=== PATIENT | female | born 1985 ===

== ENCOUNTER 2017-04-22 18:09 | Emergency (ER) | payer SELFPAY ==
[2017-04-22 18:09] VITALS: BMI 23.0
[2017-04-22 18:18] VITALS: BP 108/54; PULSE 77; RESP 18; TEMP 99.2; O2SAT 100
--- NOTE | 2017-04-22 18:35 | ED PDOC ---
HPI: Female Pain Time Seen by Provider: 04/22/17 18:24 Chief Complaint (Nursing): Female Genitourinary History Per: Patient Onset/Duration Of Symptoms: Days (1) Current Symptoms Are (Timing): Still Present Severity: Mild Pain Scale Rating Of: 2 Quality Of Discomfort: Cramping Additional Complaint(s): Vaginal bleeding assoc with lower abd cramping since this AM. Approx 8 weeks preg. [id number] Abnormal Vaginal Bleeding: Yes Past Medical History Vital Signs: Last Vital Signs Temp 99.2 F 04/22/17 18:15 Pulse 77 04/22/17 18:15 Resp 18 04/22/17 18:15 BP 108/54 L 04/22/17 18:15 Pulse Ox 100 04/22/17 18:15 - Medical History PMH: No Chronic Diseases - Family History Family History: States: Unknown Family Hx - Home Medications Home Medications: Ambulatory Orders Medication Instructions Recorded Cyclobenzaprine HCl [Flexeril] 10 mg PO HS #10 tab 03/27/15 Ibuprofen [Motrin] 600 mg PO Q6 PRN #20 tab 03/27/15 Oxycodone HCl/Acetaminophen 1 tab PO Q4 #10 tab 03/27/15 [Percocet 325 mg-5 mg] Ibuprofen [Motrin Tab] 600 mg PO Q8 PRN #60 tab 08/20/16 - Allergies Allergies/Adverse Reactions: Allergies Allergy/AdvReac Type Severity Reaction Status Date / Time No Known Allergies Allergy Verified 04/22/17 18:15 Review of Systems Gastrointestinal: Positive for: Abdominal Pain Genitourinary Female: Positive for: Vaginal Bleeding. Negative for: Dysuria, Frequency Musculoskeletal: Negative for: Back Pain Physical Exam - Physical Exam Appears: Positive for: Non-toxic, No Acute Distress Skin: Positive for: Normal Color, Warm, DRY Gastrointestinal/Abdominal: Positive for: Normal Exam, Bowel Sounds, Soft Pelvic Exam: Positive for: External Exam Normal, Blood. Negative for: Mass, Tender Adnexa - Laboratory Results Result Diagrams: 04/22/17 18:50 04/22/17 18:50 - ECG O2 Sat by Pulse Oximetry: 100 Disposition - Clinical Impression Clinical Impression: Threatened miscarriage - Patient ED Disposition Is Patient to be Admitted: No Counseled Patient/Family Regarding: Studies Performed, Diagnosis, Need For Followup, Rx Given - Disposition [facility]errals[facility] Disposition: Routine/Home Disposition Time: 21:40 Condition: FAIR Instructions: Threatened Miscarriage (ED) Print Language: NIGERIAN
[2017-04-22 19:06] LABS: BASO # 0.1 K/uL (0.0-0.2); BASO % 0.9 % (0.0-2.0); EOS # 0.3 K/uL (0.0-0.7); EOS % 2.9 % (0.0-4.0); HEMATOCRIT 34.7 % (34.0-47.0); LYMPH # 2.3 K/uL (1.0-4.3); LYMPH % 25.8 % (20.0-40.0); MEAN CELL VOLUME 83.4 fl (81.0-99.0); MEAN CORPUSCULAR HGB CONC 33.6 g/dL (33.0-37.0); MEAN PLATELET VOLUME 7.4 fl (7.2-11.7); MONO # 0.6 K/uL (0.0-0.8); MONO % 6.3 % (0.0-10.0); NEUT # 5.8 K/uL (1.8-7.0); NEUT % 64.1 % (50.0-75.0); NRBC % 0.1 % (0.0-0.0); RED CELL DISTRIBUTION WIDTH 14.8 % (11.5-14.5); WHITE BLOOD COUNT 9.1 K/uL (4.8-10.8)
[2017-04-22 19:17] LABS: ALB/GLOB RATIO 1.4 (1.0-2.1); ALKALINE PHOSPHATASE 66 U/L (38-126); ALT/SGPT 29 U/L (9-52); AST/SGOT 28 U/L (14-36); BILIRUBIN,TOTAL 0.2 mg/dl (0.2-1.3); BLOOD UREA NITROGEN 7 mg/dl (7-17); CALCIUM 9.2 mg/dL (8.4-10.2); CARBON DIOXIDE 22 mmol/L (22-30); CHLORIDE 101 mmol/L (98-107); GFR AFRICAN-AMERICAN > 60; GLUCOSE,RANDOM 86 mg/dL (65-105); POTASSIUM 3.7 MMOL/L (3.6-5.0); SODIUM 135 mmol/l (132-148); TOTAL PROTEIN 7.4 G/DL (6.3-8.2)
--- NOTE | 2017-04-22 22:10 | US ---
EXAM: US , Transvaginal CLINICAL HISTORY: 31 years old, female; Signs and symptoms; Lmp or gestational age (in weeks): 02/16/17; Antepartum complications; Hemorrhage; ; Additional info: R/O ectopic TECHNIQUE: Real-time transvaginal obstetrical ultrasound of the maternal pelvis and a first trimester with image documentation. Transvaginal imaging was used for better evaluation of the fetus and adnexa. COMPARISON: No relevant prior studies available. FINDINGS: Gestation: Single live intrauterine gestation. heart rate of 164 beats per minute. [place]-rump length of 2.48 cm, correlating with gestational age of 9 weeks 1 day. Uterus/cervix: No subchorionic hemorrhage. No cervical dilatation or effacement. Ovaries: RIGHT ovary: Normal. LEFT ovary: 3.7 x 1.8 x 2.5 cm anechoic lesion. No adnexal masses. Free fluid: No significant free fluid. IMPRESSION: 1. Single live intrauterine gestation. 2. LEFT ovarian cyst. 3. Incidental/non-acute findings are described above.
== END 2017-04-22 22:25 | disposition home or self-care (01) ==
LOC: H.ER 18:09
DX: O20.0 Threatened abortion (principal); Z3A.08 8 weeks gestation of pregnancy

== ENCOUNTER 2017-11-15 16:25 | Inpatient (IN) | payer MEDICAID, SELFPAY ==
[2017-11-15 16:31] VITALS: BMI 27.8
[2017-11-15 16:47] LABS: BASO # 0.2 K/uL (0.0-0.2); BASO % 1.8 % (0.0-2.0); EOS # 0.1 K/uL (0.0-0.7); EOS % 0.7 % (0.0-4.0); HEMOGLOBIN 13.5 g/dL (12.0-16.0); LYMPH # 2.5 K/uL (1.0-4.3); LYMPH % 22.8 % (20.0-40.0); MEAN CELL VOLUME 88.5 fl (81.0-99.0); MEAN CORPUSCULAR HEMOGLOBIN 29.7 pg (27.0-31.0); MEAN CORPUSCULAR HGB CONC 33.6 g/dL (33.0-37.0); MEAN PLATELET VOLUME 7.6 fl (7.2-11.7); MONO # 0.8 K/uL (0.0-0.8); MONO % 7.3 % (0.0-10.0); NEUT # 7.4 K/uL (1.8-7.0); NEUT % 67.4 % (50.0-75.0); RBC 4.55 Mil/uL (3.80-5.20); RED CELL DISTRIBUTION WIDTH 15.8 % (11.5-14.5)
[2017-11-15] MEDS ORDERED: Oxytocin 30 UNITS in Sodium Chloride 0.9% 500 ML IV ONE (17:00)
[2017-11-15] MEDS: Lactated Ringer's 1,000 ML IV SCH ×2 (17:10→17:12)
[2017-11-15] MEDS ORDERED: Lidocaine 1% Inj (20ml) ONE (17:39)
--- NOTE | 2017-11-15 17:59 | OBADHP ---
Datetime: 11/15/2017 16:45 Admit Comment, IP Provider: 32 yo ega of 38.6 presents to the ed with contractions. +: fm -: vb, lof, cp/sob/n/v pnc [facility]uma obhx: x1 2013 female; sab x1 2015 gyne: hsv 1 positive 09/06/2017 (hsv 2 neg); pap neg medhx: none famhx: none surg: none soc: denies smoking, etoh, illicit drugs pnv NKDA AAOX3 cardiac: s1s2 no murmur lungs: clear bilaterally no murmur abdo: gravid, non tender bedside us: cephalic negative for calf tenderness 32 yo iup 38.6 -active labor -admit to l_d -labs: cbc, ts, hiv, rpr, lr GBS: neg; ABO-Rh: O+; Ab:- ; HIV: -; RPR:- ; GC/C: - ; Rubella: im; HbsAg: -; PPD: 04/14/2017 neg; TDap:09/06/[address] Tyrell davis md [email or web address] Patient was seen with the resident and I agree with the note Pelvic Type - PN: Adequate Extremities - PN: Normal Abdomen - PN: Normal Back - PN: Normal Breast - PN: Not Done Lungs - PN: Normal Heart - PN: Normal Thyroid - PN: Not Done Neurologic - PN: Normal HEENT - PN: Normal General - PN: Normal FHR - Baseline A Provider: 150 Vital Signs Provider: Reviewed; Within Normal Limits IP Chief Complaint: Uterine contractions; Maternal discomfort NICHD Variability Prov Fetus A: Moderate 6-25bpm NICHD Accel Fetus A IP Provider: [id number] FHR Category Provider Fetus A: Category I NICHD Decel Fetus A IP Provider: None Dilatation, Provider: 8 Effacement, Provider: 70 Station, Provider: -2 Genitourinary Exam: Normal DTRs - PN: Not Done EGA AdmitDate IP: 38.6 IP Adm Impression: Term, intrauterine ; Active labor IP Admit Plan: Admit to unit Datetime: 11/15/2017 16:30 Pool Provider: Negative
[2017-11-15] MEDS ORDERED: Oxycodone/Acetaminophen 5/325 mg Tab PO PRN ×2 (18:04)
--- NOTE | 2017-11-15 18:07 | OBDS ---
DELIVERY PERSONNEL Delivery Doctor: Garret Santillan MD MATERNAL INFORMATION Delivery Anesthesia: Local Medications in Delivery: Pitocin 30u/500LR Estimated Blood Loss (ml): 200 Placenta Cultured: No Provider Comments: Delivered a live baby boy at 5:45 PM, the baby was bulb suctioned on the perineum and transferred to the maternal chest. The cord was clamped and cut 3 vessels noted cord blood was o btained and sent to the lab. The placenta was delivered at 5:50 PM intact. The estimated blood loss w as approximately 100 mL. There was a first-degree laceration was repaired with 2-0 repeat. The mother tolerated the procedure well and the baby went to [facility] weighing 3135 g LABOR SUMMARY EDC: 11/23/2017 00:00 No. Babies in Womb: 1 Attempted: No Labor Anesthesia: None LABOR INFORMATION Onset of Labor: 11/15/2017 12:00 Complete Dilatation: 11/15/2017 17:35 Oxytocin: N/A Group B Beta Strep: Negative MEMBRANES Membranes Rupture Method: Artificial Rupture of Membranes: 11/15/2017 17:30 Length of Rupture (hrs): 0.25 Amniotic Fluid Color: Clear Amniotic Fluid Amount: Moderate Amniotic Fluid Odor: Normal STAGES OF LABOR Stage 1 hrs: 5 Stage 1 min: 35 Stage 2 hrs: 0 Stage 2 min: 10 Stage 3 hrs: 0 Stage 3 min: 5 Total Time in Labor hrs: 5 Total Time in Labor min: 50 VAGINAL DELIVERY Episiotomy: None Laceration Extension: First Degree Laceration Type: Perineal Laceration Repair: Yes Initial Vag Sponge Count: 5 Final Vag Sponge Count: 5 Initial Vag Sharps Count: 3 Final Vag Sharps Count: 3 Sponge Count Correct: Yes Sharps Count Correct: Yes BABY A INFORMATION Infant Delivery Date/Time: 11/15/2017 17:45 Method of Delivery: Vaginal Born in Route : No : N/A Forceps: N/A Vacuum Extraction: N/A Shoulder Dystocia : No SHOULDER DYSTOCIA BABY A Delivery Date/Time: 11/15/2017 17:45 PRESENTATION/POSITION BABY A Presentation: Cephalic PLACENTA INFORMATION BABY A Placenta Delivery Time : 11/15/2017 17:50 Placenta Method of Delivery: Manual Removal Placenta Status: Delivered SCORES BABY A Heart Rate 1 min: >100 bpm Resp Effort 1 min: Good Cry Reflex Irritability 1 min: Cough or Sneeze or Pulls Away Muscle Tone 1 min: Active Motion Color 1 min: Body [place], Extremities Blue SCORE 1 MIN: 9 Heart Rate 5 min: >100 bpm Resp Effort 5 min: Good Cry Reflex Irritability 5 min: Cough or Sneeze or Pulls Away Muscle Tone 5 min: Active Motion Color 5 min: Body [place], Extremities Blue SCORE 5 MIN: 9 INFORMATION BABY A Gestational Age at Delivery: 38.6 Gestational Status: Term Infant Outcome : Liveborn Infant Condition : Stable Infant Sex: Male IDENTIFICATION/MEDS BABY A ID Band Number: [id number] ID Band Location: Left Leg; Left Arm WEIGHT/LENGTH BABY A Birthweight (gms): 3135 Infant Weight (lb): 6 Weight (oz): 15 CORD INFORMATION BABY A No. 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
[2017-11-15] MEDS ORDERED: Oxytocin 30 UNITS in Sodium Chloride 0.9% 500 ML IV SCH (18:15)
[2017-11-16 06:52] LABS: HEMOGLOBIN 11.7 g/dL (12.0-16.0); MEAN CELL VOLUME 87.6 fl (81.0-99.0); MEAN CORPUSCULAR HEMOGLOBIN 29.5 pg (27.0-31.0); MEAN CORPUSCULAR HGB CONC 33.7 g/dL (33.0-37.0); RBC 3.95 Mil/uL (3.80-5.20); RED CELL DISTRIBUTION WIDTH 15.6 % (11.5-14.5); WHITE BLOOD COUNT 10.3 K/uL (4.8-10.8)
--- NOTE | 2017-11-17 11:41 | OBDCSUM ---
Datetime: 11/17/2017 06:15 Discharged to, Provider: Home Follow up at, Provider: [facility] Disch Instr Activity: Normal activity Disch Instr Diet: Regular Discharge Instructions, Provider: Routine instructions given Discharge Diagnosis, Provider: Term Delivered Discharge Time: 11/17/2017 10:00 Follow up in weeks, Provider: 6 weeks Disch Referrals: None Contraception discussed, Prov: Yes Disch Activity Restrictions: No exercising; No lifting; Minimize stair-climbing; No sexual activity; Nothing in vagina - [place], tampons, douche Discharge Comment, Provider: DOA: 11/15/2017 EGA: 38.6 weeks Diagnosis: PRisk factors: none Summary of : L_D summary: DOL: 11/15/2017 at 17:45 NB: M : 9/9 Weight: 3135 g PP summary: No serious complications during PP. Lochia= menses, mild pain, controlled with medications Rubella immune Blood type: O+ CBC pp: 11.7/34.6 Discharge Date: 11/17/2017 at 10 am Discharge Instructions: -encourage -Ibuprofen/percocet for pain PRN -Colace for constipation -Ambulate as tolerated -f/u NB visit and PP visit Discharge Diagnosis Prov Other: S/P , Clinically Stable Contraception after Delivery: Undecided
--- NOTE | 2017-11-17 11:41 | OBPPN ---
Datetime: 11/17/2017 06:13 PP Pain Prov: Within normal limits PP Nausea Prov: Denies PP Flatus Prov: Yes PP BM Prov: No PP Breasts Prov: Not Done PP Heart Prov: Normal PP Lungs Prov: Normal PP Abdomen/Uterus Prov: Normal PP Lochia Prov: Normal PP Vulva/Perineum Prov: Not Done PP CVA Tenderness Prov: Not Done PP Extremities Prov: Normal PP C/S Incision Prov: Not Applicable PP Progress Prov: Normal PP Impression Prov: Normal progression PP Plan Prov: Discharge PP Progress Note Prov: S: 32 yo s/p NVD. Pt. is seen and examined at bedside this morning. N o overnight events. Pt reports occasional abdominal pain, but well controlled with pain meds. Pt is a mbulating without any difficulties. Breast/bottle feeding baby. Tolerating PO diet. Lochia is similar to light menses in volume. Voiding freely, no BM yet but passing gas per rectum. Denies fever/chills , diarrhea, nausea/vomiting, chest pain, dyspnea, and dizziness. VS: stable GEN: NAD Cardio: s1s2, no m/r/g Resp: clear breath sounds b/l Abdomen: BS+, NT, Uterus is firm and at the level of the umbilicus. EXT: No edema, calves nontender NEURO/PSYCHI: AAOx3, no grossly focal deficit, preserved affect and mood. A/P: 32yo s/p NVD. Pt remains afebrile, tolerating pain with medication, doing well on PP D 2. OOB with caution. SCDs for DVT prophylaxis, pt ambulating Ibuprofen 600mg for pain. Colace 100mg PO BID for constipation Encourage . PP CBC: 11.7/34.6 Discharge today YBecerra PGY 1 Pt was seen and reviewed with Resident and I agree with the above. IP PP Procedures: None Vital Signs Provider PP: Reviewed
[2017-11-17 18:56] VITALS: BP 112/58; PULSE 79; RESP 20; TEMP 98; O2SAT 100
== END 2017-11-17 13:00 | disposition home or self-care (01) | DRG 373 ==
LOC: H.EROB2 16:25 → UNDOADMIN 16:30 → H.L&D 16:30 → H.OB/GYN 22:24
PROVIDERS: ADMIT Obstetrics & Gynecology Gynecology; ATTEND Obstetrics & Gynecology Gynecology
PROC: 0HQ9XZZ Repair Perineum Skin, External Approach (ICD-10-PCS; principal; 2017-11-15)
PROC: 10E0XZZ Delivery of Products of Conception, External Approach (ICD-10-PCS; 2017-11-15)
PROC: 4A1HXCZ Monitoring of Products of Conception, Cardiac Rate, External Approach (ICD-10-PCS; 2017-11-15)
DX: O70.0 First degree perineal laceration during delivery (principal); K59.00 Constipation, unspecified; Z37.0 Single live birth; Z3A.38 38 weeks gestation of pregnancy